=== PATIENT | female | born 1985 | race Caucasian/White ===

== ENCOUNTER 2017-04-09 11:33 | Emergency (ER) | payer SELFPAY ==
[~2017-04-09] VITALS: Ht 167.6 cm; Wt 74.7 kg
[~2017-04-09 11:33] MED LIST: LORT5TAB PO; NAPR550 PO; Z.0.NO CURRENT MEDS
[2017-04-09 12:11] VITALS: BP 142/66; PULSE 103; RESP 16; TEMP 99; O2SAT 100
[2017-04-09] MEDS ORDERED: SOMA350T PO (12:22)
[2017-04-09] MEDS ORDERED: XANA1TAB2 PO (12:22)
[2017-04-09] MEDS ORDERED: PRIS100T PO (12:22)
[2017-04-09] MEDS ORDERED: HYDR-3366 PO (12:22)
[2017-04-09] MEDS: RESP: ALBUTEROL 2.5 MG/IPRATROPIUM 0.5 MG NEB (SCH) INH (12:43)
--- NOTE | 2017-04-09 12:52 | PD ---
HPI Chief Complaint: Cold / Flu Symptoms Time Seen by Provider: 12:31 Travel History International Travel<30 days: No Contact w/Intl Traveler<30days: No Traveled to known affect area: No History of Present Illness HPI Patient is a 32-year-old female presenting to emergency department for evaluation of 2 weeks of cough, chest congestion, fevers with a max temp 101.2 yesterday. She denies any nausea, vomiting, headache, shortness of breath, abdominal pain or chest pain. She states her chest feels tight when she breathes. She denies any tobacco use but is around secondhand smoke in her home. She further denies any history of asthma. Onset was gradual, symptoms have worsened over the last 2 weeks. Additionally she reports nasal congestion and postnasal drip. Patient is not getting relief with OTC medications. PFSH Past Medical History Anxiety: Yes Musculoskeletal: Yes (chronic pain) Immunizations Current: Yes Tetanus Vaccination: < 5 Years Influenza Vaccination: No ?: Unknown LMP: 3 months ago Past Surgical History Surgical History: No Previous Surgery Social History Alcohol Use: Yes (ONE BEER EVERYOTHER NIGHT) Tobacco Use: Yes (1/2 PPD FOR 6 YEARS) Substance Use: No Allergies-Medications (Allergen,Severity, Reaction): Coded Allergies: tetracycline (Verified Allergy, Severe, swelling, 04/09/17) tramadol (Verified Allergy, Severe, seizures, 04/09/17) amoxicillin (Verified Allergy, Intermediate, hives, vomiting, 04/09/17) doxycycline (Verified Allergy, Intermediate, rash,n/v, 04/09/17) penicillin G (Verified Allergy, Intermediate, hives, itchy skin, 04/09/17) Reported Meds & Prescriptions Reported Meds & Active Scripts Active Reported [place] (Hydrocodone-Acetaminophen) 10-325 Mg Tab 1 Tab PO Q4H PRN Xanax (Alprazolam) 1 Mg Tab 1 Mg PO Q6H PRN Soma (Carisoprodol) 350 Mg Tab 350 Mg PO BID PRN Pristiq 24 HR (Desvenlafaxine ER 24 HR) 100 Mg Tab 100 Mg PO DAILY Review of Systems Except as stated in HPI: all other systems reviewed are Neg General / Constitutional: Positive: Fever, Chills HENT: No: Headaches Cardiovascular: No: Chest Pain or Discomfort Respiratory: Positive: Cough, Shortness of Breath, Wheezing Gastrointestinal: No: Nausea, Vomiting, Abdominal Pain Musculoskeletal: No: Myalgias Physical Exam Narrative GENERAL: Well-developed, well-nourished, alert female. Resting comfortably in no acute distress. SKIN: Warm and dry. HEAD: Atraumatic. Normocephalic. EYES: Pupils equal and round. No scleral icterus. No injection or drainage. ENT: No nasal bleeding or discharge. Mucous membranes pink and moist. Posterior pharynx is cobblestone appearance. NECK: Trachea midline. No JVD. CARDIOVASCULAR: Regular rate and rhythm. RESPIRATORY: No accessory muscle use. Scattered expiratory wheezes in upper lung armando bilaterally. GASTROINTESTINAL: Abdomen soft, non-tender, nondistended. Hepatic and splenic margins not palpable. MUSCULOSKELETAL: Extremities without clubbing, cyanosis, or edema. No obvious deformities. NEUROLOGICAL: Awake and alert. No obvious cranial nerve deficits. Motor grossly within normal limits. Five out of 5 muscle strength in the arms and legs. Normal speech. PSYCHIATRIC: Appropriate mood and affect; insight and judgment normal. Data Data Last Documented VS Vital Signs Date Time Temp Pulse Resp B/P (MAP) Pulse Ox O2 Delivery O2 Flow Rate FiO2 04/09/17 12:23 100 Room Air 04/09/17 12:11 99.0 103 16 142/66 (91) Orders Orders Chest, Pa & Lat (04/09/17 ) Albuterol-Ipratropium Neb (Duoneb Neb) (04/09/17 12:45) Methylprednisolone So Succ Inj (Solumedr (04/09/17 14:00) Guaifen-Cod 200-20 Mg/10ml Liq (Robituss (04/09/17 14:00) Ed Discharge Order (04/09/17 14:23) MDM Medical Decision Making Medical Screen Exam Complete: Yes Emergency Medical Condition: Yes Interpretation(s) Vital Signs Date Time Temp Pulse Resp B/P (MAP) Pulse Ox O2 Delivery O2 Flow Rate FiO2 04/09/17 12:23 100 Room Air 04/09/17 12:11 99.0 103 16 142/66 (91) 100 Differential Diagnosis Bronchitis versus pneumonia versus viral URI versus other Narrative Course Patient presented with 2 weeks of upper respiratory symptoms. Patient's vital signs are stable, she is well oxygenated on room air. X-ray and nebulizer treatments ordered. CXR shows no acute disease. Pt has been resting comfortably. She was given solumedrol and cough medication in the ED. She was encouraged to avoid second hand smoke. She is encouraged to follow up with PCP or return to the ED for any new or worsening symptoms. Pt verbalized understanding, she is stable for discharge. Diagnosis Primary Impression: Acute bronchitis Qualified Codes: J20.9 - Acute bronchitis, unspecified Referrals: Primary Care Physician Patient Instructions: Acute Bronchitis (ED), General Instructions Additional Instructions: Follow up with your primary doctor Complete full course of antibiotics as prescribed Avoid second hand tobacco smoke Return to the Emergency department for any new or worsening symptoms Med/Other Pt SpecificInfo: Prescription(s) given Scripts Prednisone (Prednisone) 50 Mg Tab 50 MG PO DAILY for 3 Days, #3 TAB 0 Refills Prov: Delia Gonzalez 04/09/17 Azithromycin (Azithromycin) 250 Mg Tab 250 MG PO DIRECTED for Infection, #6 TAB 0 Refills Take 2 tabs (500 mg) on day 1 then 1 tab daily x 4 days. Prov: Delia Gonzalez 04/09/17 Guaifenesin-Codeine Liq (Guaifenesin-Codeine Liq) 100-10 Mg/5 Ml Soln 5 ML PO Q6H Y for COUGH, #120 BOTTLE 0 Refills Prov: Delia Gonzalez 04/09/17 Disposition: 01 DISCHARGE HOME Condition: Stable Delia Gonzalez Apr 09, 2017 12:52
[2017-04-09] MEDS ORDERED: guaiFENesin/CODEINE SYRUP 200 MG/20 MG/10 ML CUP PO ONE (14:00)
[2017-04-09] MEDS ORDERED: methylPREDNISolone SOD SUCC 125 MG/2 ML VIAL IM ONE (14:00)
--- NOTE | 2017-04-09 14:22 | RADRPT ---
EXAM DATE/TIME: 04/09/2017 13:56 [facility] COMPARISON: No previous studies available for comparison. INDICATIONS : Wheezing. MEDICAL HISTORY : None. SURGICAL HISTORY : Stent. ENCOUNTER: Initial ACUITY: 2 weeks PAIN SCORE: 8/10 LOCATION: Bilateral chest FINDINGS: PA and lateral views of the chest demonstrate the lungs to be symmetrically aerated without evidence of mass, infiltrate or effusion. The cardiomediastinal contours are unremarkable. Osseous structure s are intact. CONCLUSION: 1. No acute cardiopulmonary disease. Booker David MD on April 09, 2017 at 14:20 Board Certified Radiologist. This report was verified electronically.
[2017-04-09] MEDS ORDERED: PRED50 PO (14:28)
[2017-04-09] MEDS ORDERED: AZIT250T3 PO (14:28)
[2017-04-09] MEDS ORDERED: GUAI100S5 PO (14:28)
[2017-04-10] MEDS ORDERED: PRED5TAB PO (21:34)
[2017-04-10] MEDS ORDERED: NAPR500T2 PO (21:36)
== END 2017-04-09 14:33 | disposition home or self-care (01) ==
LOC: PHEFT 11:33
DX: J20.9 Acute bronchitis, unspecified (principal); F41.9 Anxiety disorder, unspecified; G89.29 Other chronic pain; Z77.22 Contact with and (suspected) exposure to environmental tobacco smoke (acute) (chronic)
CPT/HCPCS: 71046; 94640; 94664; 96372; 99284; J2930

== ENCOUNTER 2017-04-10 18:20 | Emergency (ER) | payer SELFPAY ==
[~2017-04-10] VITALS: Ht 167.6 cm; Wt 75.0 kg
[~2017-04-10 18:20] MED LIST changes: +AZIT250T3 PO; +GUAI100S5 PO; +HYDR-3366 PO; -LORT5TAB PO; -NAPR550 PO; +PRED50 PO; +PRIS100T PO; +SOMA350T PO; +XANA1TAB2 PO; -Z.0.NO CURRENT MEDS
[2017-04-10 18:24] VITALS: BP 138/62; PULSE 99; RESP 17; TEMP 98.3; O2SAT 100
[2017-04-10] MEDS ORDERED: SODIUM CHLOR 0.9% 1000 ML INJ 1,000 ML IV SCH (19:38)
[2017-04-10] MEDS ORDERED: KETOROLAC TROMETHAMINE 30 MG/ML (IVP) VIAL IVP ONE (19:45)
[2017-04-10] MEDS ORDERED: SODIUM CHLORIDE 0.9% FLUSH 10 ML FLUSH IV FLUSH PRN (19:45)
[2017-04-10 20:00] LABS: HEMOGLOBIN 13.3 GM/DL (11.6-15.3); MEAN CELL VOLUME 91.3 FL (80.0-100.0); MEAN CORPUSCULAR HEMOGLOBIN 28.9 PG (27.0-34.0); MEAN CORPUSCULAR HGB CONC 31.6 % (32.0-36.0); MEAN PLATELET VOLUME 7.7 FL (7.0-11.0); PLATELET COUNT 396 TH/MM3 (150-450); RED CELL DISTRIBUTION WIDTH 13.6 % (11.6-17.2); WHITE BLOOD COUNT 22.8 TH/MM3 (4.0-11.0)
[2017-04-10 20:01] LABS: AUTOMATED NEUTROPHIL # 16.9 TH/MM3 (1.8-7.7); BASOPHIL # 0.3 TH/MM3 (0-0.2); BASOPHIL % 1.4 % (0.0-2.0); EOSINOPHIL % 0.1 % (0.0-4.0); LYMPH % 18.9 % (9.0-44.0); LYMPHOCYTE # 4.3 TH/MM3 (1.0-4.8); MONO % 5.6 % (0.0-8.0); MONOCYTE # 1.3 TH/MM3 (0-0.9)
[2017-04-10 20:12] LABS: CHLORIDE 108 MEQ/L (98-107); SODIUM (NA) 142 MEQ/L (136-145)
[2017-04-10 20:16] LABS: ALBUMIN 3.4 GM/DL (3.4-5.0); CALCIUM 8.7 MG/DL (8.5-10.1); GLUCOSE,RANDOM 88 MG/DL (74-106); LIPASE 99 U/L (73-393)
[2017-04-10 20:17] LABS: BLOOD UREA NITROGEN 16 MG/DL (7-18)
[2017-04-10 20:19] LABS: ALT (GPT) 24 U/L (10-53); AST (GOT) 15 U/L (15-37); CREATININE 0.77 MG/DL (0.50-1.00); GLOMERULAR FILTRATION RATE 87 ML/MIN (>89)
[2017-04-10 20:21] LABS: TOTAL BILIRUBIN ADULT 0.2 MG/DL (0.2-1.0); TOTAL PROTEIN 7.3 GM/DL (6.4-8.2)
[2017-04-10 20:22] LABS: ALKALINE PHOSPHATASE 95 U/L (45-117)
[2017-04-10 20:25] LABS: BILIRUBIN, URINE NEG (NEG); BLOOD, URINE NEG (NEG); GLUCOSE,URINE NEG (NEG); KETONE, URINE TRACE mg/dL (NEG); NITRITE,URINE NEG (NEG); URINE LEUKOCYTE ESTERASE NEG (NEG)
[2017-04-10 20:29] VITALS: O2SAT 95
[2017-04-10 20:42] LABS: MUCUS URINE MOD /lpf (OCC); SQUAMOUS EPITHELIAL CELL URINE 0-5 /hpf (0-5); URINE COLOR YELLOW (YELLW/STRAW)
[2017-04-10 20:43] LABS: CALCIUM OXALATE CRYSTALS,URINE MOD /hpf
--- NOTE | 2017-04-10 20:53 | RADRPT ---
EXAM DATE/TIME: 04/10/2017 20:28 [facility] COMPARISON: No previous studies available for comparison. INDICATIONS : Left flank pain. ORAL CONTRAST: No oral contrast ingested. RADIATION DOSE: 16.37 CTDIvol (mGy) MEDICAL HISTORY : None SURGICAL HISTORY : renal stents. ENCOUNTER: Initial ACUITY: 1 day PAIN SCALE: 8/10 LOCATION: Left flank TECHNIQUE: Volumetric scanning of the abdomen and pelvis was performed. Using automated exposure control and ad justment of the mA and/or kV according to patient size, radiation dose was kept as low as reasonably achievable to obtain optimal diagnostic quality images. DICOM format image data is available electro nically for review and comparison. FINDINGS: LOWER LUNGS: The visualized lower lungs are clear. LIVER: Homogeneous density without lesion. There is no dilation of the biliary tree. No calcified gallston es. SPLEEN: Normal size without lesion. PANCREAS: Within normal limits. KIDNEYS: Renal pyramids appear mildly hyperdense. Kidneys are otherwise normal in size and shape. There is no mass, stone, or hydronephrosis. ADRENAL GLANDS: Within normal limits. VASCULAR: There is no aortic aneurysm. BOWEL/MESENTERY: The stomach, small bowel, and colon demonstrate no acute abnormality. There is no free intraperitone al air or fluid. ABDOMINAL WALL: Within normal limits. RETROPERITONEUM: There is no lymphadenopathy. BLADDER: No wall thickening or mass. REPRODUCTIVE: Within normal limits. INGUINAL: There is no lymphadenopathy or hernia. MUSCULOSKELETAL: Within normal limits for patient age. CONCLUSION: 1. Mildly hyperdense renal pyramids which may reflect tubular calcification and medullary sponge kidn ey. 2. No discrete calculi. 3. No evidence of obstructive uropathy 4. No acute process. Tobias Phan MD on April 10, 2017 at 20:48 Board Certified Radiologist. This report was verified electronically.
[2017-04-10] MEDS ORDERED: PRED5TAB PO (21:34)
--- NOTE | 2017-04-10 21:35 | PD ---
HPI Chief Complaint: Respiratory Symptoms Time Seen by Provider: 19:29 Travel History International Travel<30 days: No Contact w/Intl Traveler<30days: No Traveled to known affect area: No History of Present Illness HPI This is a 32 year old female who presents to the emergency department with cough , intermittent, worse in the evenings, associated with nasal congestion, intermittent fevers and chills, and left sided flank pain. The patient was seen here yesterday in the emergency department and diagnosed with bronchitis. She was given a dose of IV steroids. She was able to fill her antibiotic and her cough syrup but she could not afford the prednisone. She returns today because her left flank pain has gotten worse and she was concerned she might have a kidney stone. She says she has a history of recurring kidney stones and this feels similar. She said once she went to the hospital and was admitted because she was septic in the setting of a urinary tract infection and she wanted to make sure that wasn't the case. She adamantly denies a history of IV drug use. PFSH Past Medical History Anxiety: Yes Diminished Hearing: No Musculoskeletal: Yes (chronic pain) Immunizations Current: Yes Tetanus Vaccination: < 5 Years Influenza Vaccination: No ?: Not LMP: 3 MONTHS AGO-NEGATIVE PREG TEST YESTERDAY Social History Alcohol Use: Yes (ONE BEER EVERYOTHER NIGHT) Tobacco Use: Yes (1/2 PPD FOR 6 YEARS) Substance Use: No Allergies-Medications (Allergen,Severity, Reaction): Coded Allergies: tetracycline (Verified Allergy, Severe, swelling, 04/10/17) tramadol (Verified Allergy, Severe, seizures, 04/10/17) amoxicillin (Verified Allergy, Intermediate, hives, vomiting, 04/10/17) doxycycline (Verified Allergy, Intermediate, rash,n/v, 04/10/17) penicillin G (Verified Allergy, Intermediate, hives, itchy skin, 04/10/17) Reported Meds & Prescriptions Reported Meds & Active Scripts Active Naproxen 500 Mg Tab 500 Mg PO BID PRN Prednisone 5 Mg Tab 20 Mg PO BID 5 Days Prednisone 50 Mg Tab 50 Mg PO DAILY 3 Days Azithromycin 250 Mg Tab 250 Mg PO DIRECTED Take 2 tabs (500 mg) on day 1 then 1 tab daily x 4 days. Guaifenesin-Codeine Liq 100-10 Mg/5 Ml Soln 5 Ml PO Q6H PRN Reported [place] (Hydrocodone-Acetaminophen) 10-325 Mg Tab 1 Tab PO Q4H PRN Xanax (Alprazolam) 1 Mg Tab 1 Mg PO Q6H PRN Soma (Carisoprodol) 350 Mg Tab 350 Mg PO BID PRN Pristiq 24 HR (Desvenlafaxine ER 24 HR) 100 Mg Tab 100 Mg PO DAILY Review of Systems Except as stated in HPI: all other systems reviewed are Neg Physical Exam Narrative GENERAL:Well appearing, no acute distress SKIN: Focused skin assessment warm and dry. HEAD: Atraumatic. Normocephalic. EYES: Pupils equal and round. No injection or drainage. ENT: Moist mucous membranes NECK: Trachea midline. CARDIOVASCULAR: Regular rate and rhythm. No murmur appreciated. RESPIRATORY: Clear to auscultation. Breath sounds equal bilaterally. GASTROINTESTINAL: Abdomen soft, non-tender, nondistended. : Left CVA tenderness MUSCULOSKELETAL: No obvious deformities. NEUROLOGICAL: Awake and alert. No obvious cranial nerve deficits. Moving all extremities. PSYCHIATRIC: Appropriate mood and affect; insight and judgment normal. Data Data Last Documented VS Vital Signs Date Time Temp Pulse Resp B/P (MAP) Pulse Ox O2 Delivery O2 Flow Rate FiO2 04/10/17 21:45 04/10/17 21:40 79 16 98 Room Air 04/10/17 18:24 98.3 Orders Orders Complete Blood Count With Diff (04/10/17 19:38) Comprehensive Metabolic Panel (04/10/17 19:38) Lipase (04/10/17 19:38) Urinalysis - C+S If Indicated (04/10/17 19:38) Ct Abd/Pel W/O Iv Contrast (04/10/17 19:38) Iv Access Insert/Monitor (04/10/17 19:38) Ecg Monitoring (04/10/17 19:38) Oximetry (04/10/17 19:38) Sodium Chlor 0.9% 1000 Ml Inj (Ns 1000 M (04/10/17 19:38) Sodium Chloride 0.9% Flush (Ns Flush) (04/10/17 19:45) Ketorolac Inj (Toradol Inj) (04/10/17 19:45) Ed Urine Pregnancytest Poc (04/10/17 19:38) Influenzae A/B Antigen (04/10/17 20:46) Ed Discharge Order (04/10/17 21:35) Labs Laboratory Tests Test 04/10/17 19:49 04/10/17 20:12 White Blood Count 22.8 TH/MM3 Red Blood Count 4.60 MIL/MM3 Hemoglobin 13.3 GM/DL Hematocrit 42.0 % Mean Corpuscular Volume 91.3 FL Mean Corpuscular Hemoglobin 28.9 PG Mean Corpuscular Hemoglobin Concent 31.6 % Red Cell Distribution Width 13.6 % Platelet Count 396 TH/MM3 Mean Platelet Volume 7.7 FL Neutrophils (%) (Auto) 74.0 % Lymphocytes (%) (Auto) 18.9 % Monocytes (%) (Auto) 5.6 % Eosinophils (%) (Auto) 0.1 % Basophils (%) (Auto) 1.4 % Neutrophils # (Auto) 16.9 TH/MM3 Lymphocytes # (Auto) 4.3 TH/MM3 Monocytes # (Auto) 1.3 TH/MM3 Eosinophils # (Auto) 0.0 TH/MM3 Basophils # (Auto) 0.3 TH/MM3 CBC Comment DIFF FINAL Differential Comment Blood Urea Nitrogen 16 MG/DL Creatinine 0.77 MG/DL Random Glucose 88 MG/DL Total Protein 7.3 GM/DL Albumin 3.4 GM/DL Calcium Level 8.7 MG/DL Alkaline Phosphatase 95 U/L Aspartate Amino Transf (AST/SGOT) 15 U/L Alanine Aminotransferase (ALT/SGPT) 24 U/L Total Bilirubin 0.2 MG/DL Sodium Level 142 MEQ/L Potassium Level 3.5 MEQ/L Chloride Level 108 MEQ/L Carbon Dioxide Level 24.0 MEQ/L Anion Gap 10 MEQ/L Estimat Glomerular Filtration Rate 87 ML/MIN Lipase 99 U/L Urine Color YELLOW Urine Turbidity SLIGHT Urine pH 6.0 Urine Specific [place] 1.033 Urine Protein NEG mg/dL Urine Glucose (UA) NEG mg/dL Urine Ketones TRACE mg/dL Urine Occult Blood NEG Urine Nitrite NEG Urine Bilirubin NEG Urine Leukocyte Esterase NEG Urine WBC 3-5 /hpf Urine Squamous Epithelial Cells 0-5 /hpf Urine Calcium Oxalate Crystals MOD /hpf Urine Mucus MOD /lpf Microscopic Urinalysis Comment CULT NOT INDICATED MDM Medical Decision Making Medical Screen Exam Complete: Yes Emergency Medical Condition: Yes Interpretation(s) Leukocytosis of 22.8 74% neutrophils Electrolytes are reassuring Lipase is normal Urinalysis: No infection Last 24 hours Impressions Abdomen/Pelvis CT 04/10/171937 Signed Impressions: Service Date/Time: Monday, April 10, 2017 20:28 - CONCLUSION: 1. Mildly hyperdense renal pyramids which may reflect tubular calcification and medullary sponge kidney. 2. No discrete calculi. 3. No evidence of obstructive uropathy 4. No acute process. Tobias Phan MD Differential Diagnosis Pyelonephritis, urinary tract infection, influenza, pneumonia Narrative Course This is a 32-year-old female who presents to the emergency department with left- sided flank pain and fevers and chills. She's also had upper respiratory symptoms. She was seen yesterday in the emergency department and had a reassuring x-ray with no evidence of pneumonia and was treated empirically for bronchitis. Labs demonstrate a white blood cell count of 22 which I suspect is in the setting of IV steroids which were administered yesterday. Otherwise her only abnormal vital sign is some mild tachycardia with a heart rate of 99. Labs are otherwise reassuring. Urinalysis is negative for infection. CT abdomen and pelvis demonstrates no kidney stones but evidence of possible medullary sponge kidney. I suspect patient has a viral syndrome. I think her cough would benefit from prednisone. I prescribed her 5 mg tablets which are more affordable than the 50 mg tablets and prescribed naproxen. I think she can continue outpatient management with azithromycin and bronchodilators. Patient will be discharged home. Diagnosis Primary Impression: Bronchitis Patient Instructions: General Instructions Additional Instructions: If you develop severe chest pain, shortness of breath, sweating, lightheadedness , dizziness or difficulty breathing return to the emergency department immediately. Followup with your primary care physician in 2-3 days if your symptoms are not resolved. Med/Other Pt SpecificInfo: Prescription(s) given Scripts Naproxen (Naproxen) 500 Mg Tab 500 MG PO BID Y for PAIN SCALE 4 TO 10, #20 TAB 0 Refills Prov: Lisset Montague MD 04/10/17 Prednisone (Prednisone) 5 Mg Tab 20 MG PO BID for 5 Days, #40 TAB 0 Refills Prov: Lisset Montague MD 04/10/17 Disposition: 01 DISCHARGE HOME Condition: Stable Lisset Montague MD Apr 10, 2017 21:35
[2017-04-10] MEDS ORDERED: NAPR500T2 PO (21:36)
[2017-04-10 21:40] VITALS: BP 126/74; PULSE 79; RESP 16; O2SAT 98
== END 2017-04-10 21:49 | disposition home or self-care (01) ==
LOC: PHED 18:20
DX: J40 Bronchitis, not specified as acute or chronic (principal); F17.210 Nicotine dependence, cigarettes, uncomplicated; Z87.442 Personal history of urinary calculi
CPT/HCPCS: 74176; 80053; 81001; 83690; 84703; 85025; 87804; 96361; 96374; 99285; J1885; J7030

== ENCOUNTER 2017-04-14 12:00 | Emergency (ER) | payer SELFPAY ==
[~2017-04-14] VITALS: Ht 167.6 cm; Wt 72.5 kg
[~2017-04-14 12:00] MED LIST changes: +NAPR500T2 PO; +PRED5TAB PO
[2017-04-14 12:02] VITALS: BP 142/82; PULSE 102; RESP 18; TEMP 99.5; O2SAT 100
[2017-04-14 12:42] LABS: AUTOMATED NEUTROPHIL # 6.9 TH/MM3 (1.8-7.7); BASOPHIL # 0.1 TH/MM3 (0-0.2); BASOPHIL % 0.7 % (0.0-2.0); EOSINOPHIL # 0.1 TH/MM3 (0-0.4); EOSINOPHIL % 1.2 % (0.0-4.0); HEMATOCRIT 42.1 % (35.0-46.0); HEMOGLOBIN 14.4 GM/DL (11.6-15.3); LYMPH % 32.2 % (9.0-44.0); LYMPHOCYTE # 3.6 TH/MM3 (1.0-4.8); MEAN CELL VOLUME 90.6 FL (80.0-100.0); MEAN CORPUSCULAR HEMOGLOBIN 31.1 PG (27.0-34.0); MEAN CORPUSCULAR HGB CONC 34.3 % (32.0-36.0); MEAN PLATELET VOLUME 7.3 FL (7.0-11.0); MONO % 4.9 % (0.0-8.0); MONOCYTE # 0.6 TH/MM3 (0-0.9); PLATELET COUNT 432 TH/MM3 (150-450); RED BLOOD COUNT 4.65 MIL/MM3 (4.00-5.30); WHITE BLOOD COUNT 11.3 TH/MM3 (4.0-11.0)
[2017-04-14 12:42] LABS: AMORPHOUS SEDIMENT, URINE MANY; BACTERIA, URINE OCC /hpf; BILIRUBIN, URINE NEG (NEG); BLOOD, URINE NEG (NEG); GLUCOSE,URINE NEG (NEG); KETONE, URINE NEG (NEG); MUCUS URINE FEW /lpf (OCC); NITRITE,URINE NEG (NEG); PH, URINE 6.5 (5.0-8.5); SQUAMOUS EPITHELIAL CELL URINE 8 /hpf (0-5); URINE COLOR YELLOW (YELLW/STRAW); URINE LEUKOCYTE ESTERASE NEG (NEG)
[2017-04-14 12:57] LABS: ALBUMIN 3.6 GM/DL (3.4-5.0); AST (GOT) 10 U/L (15-37); BICARBONATE 27.2 MEQ/L (21.0-32.0); BLOOD UREA NITROGEN 13 MG/DL (7-18); CALCIUM 8.6 MG/DL (8.5-10.1); CHLORIDE 103 MEQ/L (98-107); CREATININE 0.68 MG/DL (0.50-1.00); GLOMERULAR FILTRATION RATE 101 ML/MIN (>89); GLUCOSE,RANDOM 83 MG/DL (74-106); SODIUM (NA) 139 MEQ/L (136-145)
[2017-04-14 12:59] LABS: ALT (GPT) 20 U/L (10-53)
[2017-04-14 13:01] LABS: ALKALINE PHOSPHATASE 99 U/L (45-117); TOTAL BILIRUBIN ADULT 0.2 MG/DL (0.2-1.0); TOTAL PROTEIN 7.4 GM/DL (6.4-8.2)
[2017-04-14 13:46] VITALS: BP 129/73; PULSE 86; RESP 20; TEMP 98.4; O2SAT 99
--- NOTE | 2017-04-14 13:56 | PD ---
HPI Chief Complaint: Psychiatric Symptoms Time Seen by Provider: 13:35 Travel History International Travel<30 days: No Contact w/Intl Traveler<30days: No Traveled to known affect area: No History of Present Illness HPI The patient is a 32-year-old female who presents to the emergency department for psychiatric evaluation. The patient states that her grandmother last spring, she states her grandmother was like a mother to her and she has had a hard time dealing with the . The patient states she was in [place], became homeless and then lost her car. The patient states she return to the local area for psychiatric evaluation. The patient states her last several months she will awaken each and every day with the thought of suicide. She has thoughts and plans of jumping off a bridge into traffic to end her life. She does have a history of previous suicide attempts and is taking too many medications in the past in attempt to sleep and/or . She denies any hallucinations or delusions. She denies any current alcohol abuse or illicit drug use. The patient's symptoms are moderate, exacerbated after her grandmother , there are no current alleviating factors. The patient does have a history of major depression and was recently taking Pristiq and Xanax. She is no longer taking those medications. PFSH Past Medical History Anxiety: Yes Depression: Yes Diminished Hearing: No Musculoskeletal: Yes (chronic pain) Immunizations Current: Yes Seizures: Yes Influenza Vaccination: No ?: Not LMP: 3 months ago Past Surgical History Genitourinary Surgery: Yes (KIDNEY STENTS) Social History Alcohol Use: No Tobacco Use: Yes (1/2 PPD FOR 6 YEARS) Substance Use: No Allergies-Medications (Allergen,Severity, Reaction): Coded Allergies: tetracycline (Verified Allergy, Severe, swelling, 04/14/17) tramadol (Verified Allergy, Severe, seizures, 04/14/17) amoxicillin (Verified Allergy, Intermediate, hives, vomiting, 04/14/17) doxycycline (Verified Allergy, Intermediate, rash,n/v, 04/14/17) penicillin G (Verified Allergy, Intermediate, hives, itchy skin, 04/14/17) Reported Meds & Prescriptions Reported Meds & Active Scripts Active Naproxen 500 Mg Tab 500 Mg PO BID PRN Prednisone 5 Mg Tab 20 Mg PO BID 5 Days Prednisone 50 Mg Tab 50 Mg PO DAILY 3 Days Azithromycin 250 Mg Tab 250 Mg PO DIRECTED Take 2 tabs (500 mg) on day 1 then 1 tab daily x 4 days. Guaifenesin-Codeine Liq 100-10 Mg/5 Ml Soln 5 Ml PO Q6H PRN Reported [place] (Hydrocodone-Acetaminophen) 10-325 Mg Tab 1 Tab PO Q4H PRN Xanax (Alprazolam) 1 Mg Tab 1 Mg PO Q6H PRN Soma (Carisoprodol) 350 Mg Tab 350 Mg PO BID PRN Pristiq 24 HR (Desvenlafaxine ER 24 HR) 100 Mg Tab 100 Mg PO DAILY Review of Systems Except as stated in HPI: all other systems reviewed are Neg General / Constitutional: No: Fever Cardiovascular: No: Chest Pain or Discomfort Respiratory: No: Shortness of Breath Gastrointestinal: No: Nausea, Vomiting, Abdominal Pain Musculoskeletal: No: Weakness Neurologic: No: Change in Mentation Psychiatric: Positive: Anxiety, Depression, Suicidal Ideations, No: Substance Abuse, Homicidal Ideation Physical Exam Narrative GENERAL: Awake, alert, pleasant 32-year-old female who appears her stated age and is in no acute respiratory distress. Tearful during examination. SKIN: Focused skin assessment warm/dry. HEAD: Atraumatic. Normocephalic. EYES: Pupils equal and round. Mild injection secondary to crying. ENT: No nasal bleeding or discharge. Mucous membranes pink and moist. NECK: Trachea midline. No JVD. CARDIOVASCULAR: Regular rate and rhythm. No murmur appreciated. RESPIRATORY: No accessory muscle use. Clear to auscultation. Breath sounds equal bilaterally. GASTROINTESTINAL: Abdomen soft, non-tender, nondistended. MUSCULOSKELETAL: No obvious deformities. No clubbing. No cyanosis. No edema. NEUROLOGICAL: Awake and alert. No obvious cranial nerve deficits. Motor grossly within normal limits. Normal speech. PSYCHIATRIC: Tearful, appropriate mood and affect. Insight and judgment appear normal. Data Data Last Documented VS Vital Signs Date Time Temp Pulse Resp B/P (MAP) Pulse Ox O2 Delivery O2 Flow Rate FiO2 04/14/17 13:46 98.4 86 20 129/73 (91) 99 Room Air Orders Orders Complete Blood Count With Diff (04/14/17 12:08) Comprehensive Metabolic Panel (04/14/17 12:08) Urinalysis - C+S If Indicated (04/14/17 12:08) Ed Urine Pregnancytest Poc (04/14/17 12:08) Psych Screen (04/14/17 12:08) Drug Screen, Random Urine (04/14/17 12:08) Alcohol (Ethanol) (04/14/17 12:08) Labs Laboratory Tests Test 04/14/17 12:10 04/14/17 12:23 Urine Color YELLOW Urine Turbidity HAZY Urine pH 6.5 Urine Specific [place] 1.018 Urine Protein NEG mg/dL Urine Glucose (UA) NEG mg/dL Urine Ketones NEG mg/dL Urine Occult Blood NEG Urine Nitrite NEG Urine Bilirubin NEG Urine Urobilinogen LESS THAN 2.0 MG/DL Urine Leukocyte Esterase NEG Urine RBC LESS THAN 1 /hpf Urine WBC LESS THAN 1 /hpf Urine Squamous Epithelial Cells 8 /hpf Urine Amorphous Sediment MANY Urine Bacteria OCC /hpf Urine Mucus FEW /lpf Microscopic Urinalysis Comment CULT NOT INDICATED Urine Opiates Screen NEG Urine Barbiturates Screen NEG Urine Amphetamines Screen NEG Urine Benzodiazepines Screen NEG Urine Cocaine Screen NEG Urine Cannabinoids Screen NEG White Blood Count 11.3 TH/MM3 Red Blood Count 4.65 MIL/MM3 Hemoglobin 14.4 GM/DL Hematocrit 42.1 % Mean Corpuscular Volume 90.6 FL Mean Corpuscular Hemoglobin 31.1 PG Mean Corpuscular Hemoglobin Concent 34.3 % Red Cell Distribution Width 14.0 % Platelet Count 432 TH/MM3 Mean Platelet Volume 7.3 FL Neutrophils (%) (Auto) 61.0 % Lymphocytes (%) (Auto) 32.2 % Monocytes (%) (Auto) 4.9 % Eosinophils (%) (Auto) 1.2 % Basophils (%) (Auto) 0.7 % Neutrophils # (Auto) 6.9 TH/MM3 Lymphocytes # (Auto) 3.6 TH/MM3 Monocytes # (Auto) 0.6 TH/MM3 Eosinophils # (Auto) 0.1 TH/MM3 Basophils # (Auto) 0.1 TH/MM3 CBC Comment DIFF FINAL Differential Comment Blood Urea Nitrogen 13 MG/DL Creatinine 0.68 MG/DL Random Glucose 83 MG/DL Total Protein 7.4 GM/DL Albumin 3.6 GM/DL Calcium Level 8.6 MG/DL Alkaline Phosphatase 99 U/L Aspartate Amino Transf (AST/SGOT) 10 U/L Alanine Aminotransferase (ALT/SGPT) 20 U/L Total Bilirubin 0.2 MG/DL Sodium Level 139 MEQ/L Potassium Level 4.2 MEQ/L Chloride Level 103 MEQ/L Carbon Dioxide Level 27.2 MEQ/L Anion Gap 9 MEQ/L Estimat Glomerular Filtration Rate 101 ML/MIN Ethyl Alcohol Level LESS THAN 3 MG/DL MDM Medical Decision Making Medical Screen Exam Complete: Yes Emergency Medical Condition: Yes Medical Record Reviewed: Yes Differential Diagnosis Differential diagnosis includes major depression, suicidal ideation, adjustment reaction, stress reaction, bipolar affective disorder. Narrative Course Labs are drawn and sent. Laboratory evaluation is unremarkable. UA is unremarkable. The patient is medically cleared to be evaluated by psychiatry. Disposition as per psych. Diagnosis Primary Impression: Depressive disorder Additional Impression: Suicidal ideation Condition: Stable Sanford Woody MD Apr 14, 2017 13:56
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
[2017-04-14] MEDS ORDERED: ZOLO50TA PO (17:33)
[2017-04-14] MEDS ORDERED: VIST50CA PO (17:36)
--- NOTE | 2017-04-14 17:50 | PD ---
Physical Exam Time Seen by Provider: 17:49 Data Data Last Documented VS Vital Signs Date Time Temp Pulse Resp B/P (MAP) Pulse Ox O2 Delivery O2 Flow Rate FiO2 04/14/17 13:46 98.4 86 20 129/73 (91) 99 Room Air Orders Orders Complete Blood Count With Diff (04/14/17 12:08) Comprehensive Metabolic Panel (04/14/17 12:08) Urinalysis - C+S If Indicated (04/14/17 12:08) Ed Urine Pregnancytest Poc (04/14/17 12:08) Psych Screen (04/14/17 12:08) Drug Screen, Random Urine (04/14/17 12:08) Alcohol (Ethanol) (04/14/17 12:08) Ed Discharge Order (04/14/17 17:49) Labs Laboratory Tests Test 04/14/17 12:10 04/14/17 12:23 Urine Color YELLOW Urine Turbidity HAZY Urine pH 6.5 Urine Specific [place] 1.018 Urine Protein NEG mg/dL Urine Glucose (UA) NEG mg/dL Urine Ketones NEG mg/dL Urine Occult Blood NEG Urine Nitrite NEG Urine Bilirubin NEG Urine Urobilinogen LESS THAN 2.0 MG/DL Urine Leukocyte Esterase NEG Urine RBC LESS THAN 1 /hpf Urine WBC LESS THAN 1 /hpf Urine Squamous Epithelial Cells 8 /hpf Urine Amorphous Sediment MANY Urine Bacteria OCC /hpf Urine Mucus FEW /lpf Microscopic Urinalysis Comment CULT NOT INDICATED Urine Opiates Screen NEG Urine Barbiturates Screen NEG Urine Amphetamines Screen NEG Urine Benzodiazepines Screen NEG Urine Cocaine Screen NEG Urine Cannabinoids Screen NEG White Blood Count 11.3 TH/MM3 Red Blood Count 4.65 MIL/MM3 Hemoglobin 14.4 GM/DL Hematocrit 42.1 % Mean Corpuscular Volume 90.6 FL Mean Corpuscular Hemoglobin 31.1 PG Mean Corpuscular Hemoglobin Concent 34.3 % Red Cell Distribution Width 14.0 % Platelet Count 432 TH/MM3 Mean Platelet Volume 7.3 FL Neutrophils (%) (Auto) 61.0 % Lymphocytes (%) (Auto) 32.2 % Monocytes (%) (Auto) 4.9 % Eosinophils (%) (Auto) 1.2 % Basophils (%) (Auto) 0.7 % Neutrophils # (Auto) 6.9 TH/MM3 Lymphocytes # (Auto) 3.6 TH/MM3 Monocytes # (Auto) 0.6 TH/MM3 Eosinophils # (Auto) 0.1 TH/MM3 Basophils # (Auto) 0.1 TH/MM3 CBC Comment DIFF FINAL Differential Comment Blood Urea Nitrogen 13 MG/DL Creatinine 0.68 MG/DL Random Glucose 83 MG/DL Total Protein 7.4 GM/DL Albumin 3.6 GM/DL Calcium Level 8.6 MG/DL Alkaline Phosphatase 99 U/L Aspartate Amino Transf (AST/SGOT) 10 U/L Alanine Aminotransferase (ALT/SGPT) 20 U/L Total Bilirubin 0.2 MG/DL Sodium Level 139 MEQ/L Potassium Level 4.2 MEQ/L Chloride Level 103 MEQ/L Carbon Dioxide Level 27.2 MEQ/L Anion Gap 9 MEQ/L Estimat Glomerular Filtration Rate 101 ML/MIN Ethyl Alcohol Level LESS THAN 3 MG/DL MDM Medical Record Reviewed: Yes Supervised Visit with ZHANNA: No Narrative Course Please see previous provider's notes. This patient has been cleared by psychiatry. She will be following up with a psychiatrist as an outpatient. She is denying any suicidal or homicidal ideation at this time. She states that she can return at any time if she has any new or worsening symptoms. She is stable for discharge. Diagnosis Primary Impression: Major depressive disorder Ruled Out: Suicidal ideation Patient Instructions: General Instructions Departure Forms: Tests/Procedures Scripts Hydroxyzine Pamoate (Vistaril) 50 Mg Cap 50 MG PO BID for Anxiety and/or Insomnia, #30 CAP 0 Refills Prov: CordonVeroniques Nancy Escobar APPLIANCE PAINTER AND REFINISHER 04/14/17 Sertraline (Zoloft) 50 Mg Tab 50 MG PO DAILY for Anxiety, #30 TAB 0 Refills Prov: CordonVeroniques Nancy Escobar APPLIANCE PAINTER AND REFINISHER 04/14/17 Disposition: 01 DISCHARGE HOME Condition: Stable Adams Wilkins Apr 14, 2017 17:50
== END 2017-04-14 18:20 | disposition home or self-care (01) ==
LOC: NEPD 12:00 → NEPJ 18:20
DX: F33.0 Major depressive disorder, recurrent, mild (principal); F41.1 Generalized anxiety disorder; G89.29 Other chronic pain; F17.200 Nicotine dependence, unspecified, uncomplicated; Z59.0 Homelessness
CPT/HCPCS: 80053; 80307; 81001; 84703; 85025; 99284